=== PATIENT | female | born 1955 | race Caucasian/White ===

== ENCOUNTER 2020-10-17 16:53 | Inpatient (IN) ==
[2020-10-17] MEDS ORDERED: 0.9 % SODIUM CHLORIDE 500 ML IV ONE (17:20)
--- NOTE | 2020-10-17 17:30 | Emergency Department Note ---
HPI General Chief complaint: Recheck/Abnormal Lab/Rx Stated complaint: Hyponatremia Time Seen by Provider: 10/17/20 16:59 Source: patient and EMS Mode of arrival: EMS Limitations: no limitations History of Present Illness HPI Narrative: Narrative:Patient presenting from her nursing facility for evaluation of hyponatremia, she has had this issue with the past, unclear etiology but tends to resolve with IV hydration upon chart review. Patient has no acute complaints she reports this was a routine lab draw with the incidental finding, unclear how low her sodium is as I do not have a copy of her outpatient labs. She denies any complaints including acute weakness, acute focal neurologic deficit, paresthesias, vision changes, chest pain, shortness of breath, abdominal pain, nausea, vomiting, diarrhea. Patient states she does not take any home medications and has not had any recent changes or initiation of m edications, she says she has not really had any dietary changes or p.o. fluid changes that would indicate an obvious cause for this. Related Data Home Medications Medication Instructions Recorded Confirmed fluoxetine 10 mg PO QDAY 09/26/20 10/17/20 acetaminophen 1,000 mg PO TID PRN 10/17/20 10/17/20 Allergies Allergy/AdvReac Type Severity Reaction Status Date / Time bee venom protein (honey bee) Allergy Severe Anaphylaxis Verified 09/27/20 13:42 lactose AdvReac Intermediate Diarrhea Verified 09/27/20 13:42 Review of Systems ROS ROS Narrative: Narrative:At least 10 systems reviewed and otherwise acutely negative except as in the HPI PFSH Narrative Patient History Narrative: Narrative: Medical/Surgical/Family History All Active Problems (Updated 10/17/20 @ 19:15 by Ramón Kent DO) Abdominal pain (Acute) Anemia (Acute) Elevated alkaline phosphatase level (Acute) UTI (urinary tract infection) (Acute) Fall (Acute) Low back pain (Acute) Compression fracture (Acute) Acute UTI (Acute) Acute hyponatremia (Acute) Weakness (Acute) Acute hyponatremia (Acute) Acute hyponatremia (Acute) Poor vision (Chronic) Elevated liver enzymes (Acute) H/O brain surgery (Chronic) Pituitary benign neoplasm (Chronic) Medical History (Updated 10/17/20 @ 19:15 by Ramón Kent DO) Abdominal pain Bradycardia Elevated liver enzymes Pancreatitis, acute Pituitary benign neoplasm Poor vision Surgical History H/O brain surgery Social History Smoking Status: Former smoker Alcohol Intake Frequency: does not drink Substance Use: does not use Exam Narrative Narrative: Narrative:Constitutional: normally developed, no acute distress . Head: Normocephalic, atraumatic, Eyes: No Icterus, ENT: Slightly dry mucus membranes, Neck: Supple, Cardiac: Normal heart sounds, palpable radial pulses, no peripheral edema Pulmonary: Normal respiratory effort. Breath sounds clear, no wheeze, rhonchi, rales, Gastrointestinal: Abdomen soft, non-distended, non-tender, Musculoskeletal: No gross deformities, well perfused Skin: warm, dry Neuro: Alert and oriented. Moving all 4 extremities with symmetric strength, symmetric sensation General Limitations: no limitations Course Vital Signs Vital signs: Vital Signs Temperature 36.7 C 10/17/20 16:53 Pulse Rate 66 10/17/20 16:53 Respiratory Rate 18 10/17/20 16:53 Blood Pressure 98/54 10/17/20 16:53 Pulse Oximetry (%) 96 10/17/20 16:53 Temperature 36.7 C 10/17/20 16:53 Pulse Rate 65 10/17/20 19:01 Respiratory Rate 12 10/17/20 19:01 Blood Pressure 104/66 10/17/20 19:01 Pulse Oximetry (%) 95 10/17/20 19:01 [facility] MDM Narrative Medical decision making narrative: Narrative: Patient presents for evaluation of hyponatremia noted on outpatient labs, she has had this issue in the past which appears to resolve with some IV hydration, she has no acute complaints and no focal neurologic symptoms. Says she does not take any medications and has had no other significant changes to her routine that would elicit an obvious cause to her hyponatremia. Blood pressure is low normal although this does appear to be close to her baseline, will obtain basic labs and check her sodium in the meantime did give her a slow 500 cc NS bolus Lab results CBC is unremarkable, electrolytes do show a quite significant hyponatremia hypochloremia 115, 80. Again she is quite asymptomatic, certainly no neurologic symptoms she is oriented no reported seizure activity vital stable I have spoken with Dr. Suarez who accepts pt to PCU. I will order repeat of her BMP at this time to following her slow 500 cc bolus. . Lab Data Result diagrams: 10/17/20 17:25 10/17/20 17:25 Labs: Lab Results 10/17/20 10/17/20 Range/Units 17:25 17:25 WBC 5.5 (4.5-11.0) K/mcL RBC 3.51 L (4.00-5.20) M/mcL Hgb 10.5 L (12.0-15.0) g/dL Hct 29.0 L (36.0-48.0) % MCV 82.6 (80.0-100.0) fL MCH 29.9 (26.0-34.0) pg MCHC 36.2 H (31.0-36.0) g/dL RDW 11.9 (11.5-14.5) % Plt Count 226 (140-440) K/mcL MPV 10.0 (7.4-10.4) fL Neut % (Auto) 37.9 L (38.0-78.0) % Lymph % (Auto) 47.8 (15.0-49.0) % [place] % (Auto) 6.8 (1.0-12.0) % Eos % (Auto) 6.6 (0.0-7.0) % Baso % (Auto) 0.9 (0.0-2.0) % Lymph # (Auto) 2.62 (1.50-4.80) K/mcL [place] # (Auto) 0.37 (0.10-0.90) K/mcL Eos # (Auto) 0.36 (0.00-0.70) K/mcL Baso # (Auto) 0.05 (0.00-0.20) K/mcL Absolute Neutrophils 2.08 (1.80-8.00) K/mcL Sodium 115 L* (133-145) mmol/L Potassium 3.4 (3.3-5.1) mmol/L Chloride 80 L (96-108) mmol/L Carbon Dioxide 25 (22-30) mmol/L Anion Gap 10.0 (8.0-16.0) BUN 8 (8-23) mg/dL Creatinine 0.6 (0.6-1.1) mg/dL GFR Calculation 94 Glucose 86 (70-105) mg/dL Calcium 8.9 (8.6-10.4) mg/dL CC TIME Critical Care Time Critical Care Time: Yes Total Critical Care Time: 25 Attestation: Critical Care Time Total CriticalCare time was 25 minutes, excluding separately reportable procedures. There was a high probability of clinically significant/life threatening deterioration in the patient's condition which required my urgent intervention. Discharge Plan Patient/Caregiver Discharge Instructions Pt seen by LOCAL SALES MANAGER/PA only: No Clinical Impression: Acute hyponatremia Patient Disposition: Xfer As Inpt ([facility]) Condition: Fair Follow up with: Chai Vázquez ARNP [Primary Care Provider] - Prescriptions: No Action fluoxetine 10 mg Capsule 10 mg PO QDAY RF: 0 acetaminophen 500 mg Tablet 1,000 mg PO TID PRN (Reason: Pain) RF: 0
[2020-10-17 18:21] LABS: Basophils # (Auto) 0.05 K/mcL (0.00-0.20); Basophils % (Auto) 0.9 % (0.0-2.0); Eosinophils # (Auto) 0.36 K/mcL (0.00-0.70); Eosinophils % (Auto) 6.6 % (0.0-7.0); Hemoglobin 10.5 g/dL (12.0-15.0); Lymphocytes # (Auto) 2.62 K/mcL (1.50-4.80); Lymphocytes % (Auto) 47.8 % (15.0-49.0); Mean Cell Volume 82.6 fL (80.0-100.0); Mean Corpuscular HGB Conc 36.2 g/dL (31.0-36.0); Monocytes # (Auto) 0.37 K/mcL (0.10-0.90); Monocytes % (Auto) 6.8 % (1.0-12.0); Neutrophils % (Auto) 37.9 % (38.0-78.0); Platelet Count 226 K/mcL (140-440); RBC 3.51 M/mcL (4.00-5.20); Red Cell Distribution Width 11.9 % (11.5-14.5); WBC 5.5 K/mcL (4.5-11.0)
[2020-10-17 18:49] LABS: Blood Urea Nitrogen 8 mg/dL (8-23); Calcium 8.9 mg/dL (8.6-10.4); Carbon Dioxide 25 mmol/L (22-30); Chloride 80 mmol/L (96-108); Glomerular Filtration Rate 94; Glucose 86 mg/dL (70-105)
[2020-10-17 19:35] LABS: POC Blood Urea Nitrogen 8 mg/dL (6-20); POC CO2 27 mmol/L (22-30); POC Calcium, Ionized 1.17 mmEq/L (1.16-1.32); POC Chloride 79 mEq/L (96-108); POC Creatinine 0.5 mg/dL (0.6-1.2); POC Glucose, Random 85 mg/dL (70-105); POC Hematocrit 30 % (36-48); POC Potassium 3.3 mEql/L (3.3-5.1); POC Sodium 116 mEq/L (133-145)
--- NOTE | 2020-10-17 19:57 | Internal Med History&Physical ---
HPI History of Present Illness Patient information: Note initiated : 10/17/20 at 7:49 pm Service Date, if different from initiated Date: [] Patient: Yesica Fuller a 65 y/o F admitted on for Hyponatremia. Chief Complaint: [] History of present illness: Ms. Fuller is a 65 year old female who presented to the ED for hyponatremia discovered with the patient had routine labs drawn at the custodial [facility] where she is staying long-term. Patient has a history of cholecystectomy, osteoarthritis, prior hyponatremia noted on more recent lab work. She is on low-dose duloxetine, presumably for depression and takes Tylenol osteoarthritis of her knees. The patient says that she drinks a lot of water. In the ED, the patient was asymptomatic however sodium level was 115. Review of recent records indicate that she was seen last month in the ED and also had hyponatremia, improved to 131 after receiving IV fluid. On exam, the patient appears to be euvolemic. Review of systems was essentially negative except for chronic knee pain. Review of systems Constitutional: no fever, fatigue, or weight loss Eyes: no vision changes or pain Cardiovascular: no chest pain, no palpitations Respiratory: no cough or dyspnea Gastrointestinal: no abdominal pain, no nausea, vomiting, or diarrhea Genitourinary: no dysuria or difficulty voiding Musculoskeletal: Positive for chronic bilateral knee pain Integumentary: no skin lesion or wound Neurological: no focal weakness or numbness Psychiatric: no anxiety or depression Physical exam Head: Atraumatic, normal inspection. Eyes: normal appearance, no scleral icterus. Neck: full ROM Respiratory: no respiratory distress. Cardiovascular: normal rate and rhythm, S1, S2. GI/Abdominal: soft, nontender, no guarding. Extremities: full range of motion, nontender. Neurological: CN II-XII intact, intact motor, intact sensation. Psychiatric: normal mood. Skin: warm, normal color PFSH PFSH All Active Problems (Updated 10/17/20 @ 19:15 by Ramón Kent DO) Abdominal pain (Acute) Anemia (Acute) Elevated alkaline phosphatase level (Acute) UTI (urinary tract infection) (Acute) Fall (Acute) Low back pain (Acute) Compression fracture (Acute) Acute UTI (Acute) Acute hyponatremia (Acute) Weakness (Acute) Acute hyponatremia (Acute) Acute hyponatremia (Acute) Poor vision (Chronic) Elevated liver enzymes (Acute) H/O brain surgery (Chronic) Pituitary benign neoplasm (Chronic) Medical History (Updated 10/17/20 @ 19:15 by Ramón Kent DO) Abdominal pain Bradycardia Elevated liver enzymes Pancreatitis, acute Pituitary benign neoplasm Poor vision Surgical History H/O brain surgery Social History (Updated 04/11/19 @ 08:37 by Roro Sheppard DO) alcohol intake frequency: does not drink substance use type: does not use MEDS/ALLERGIES Home Medications and Allergies Home Medications Medication Instructions Recorded Confirmed Type fluoxetine 10 mg PO QDAY 09/26/20 10/17/20 History acetaminophen 1,000 mg PO TID PRN 10/17/20 10/17/20 History Allergies Allergy/AdvReac Type Severity Reaction Status Date / Time bee venom protein (honey bee) Allergy Severe Anaphylaxis Verified 09/27/20 13:42 lactose AdvReac Intermediate Diarrhea Verified 09/27/20 13:42 EXAM Constitutional Vitals: Temp Pulse Resp BP Pulse Ox 98.1 F 67 20 103/69 97 10/17/20 16:53 10/17/20 19:31 10/17/20 19:31 10/17/20 19:31 10/17/20 19:31 DATA Data Completed and Pending Labs: Labs from last 24 hours 10/17/20 10/17/20 10/17/20 19:23 17:25 17:25 WBC 5.5 RBC 3.51 L Hgb 10.5 L Hct 29.0 L POC Hct 30 L MCV 82.6 MCH 29.9 MCHC 36.2 H RDW 11.9 Plt Count 226 MPV 10.0 Neut % (Auto) 37.9 L Lymph % (Auto) 47.8 [place] % (Auto) 6.8 Eos % (Auto) 6.6 Baso % (Auto) 0.9 Lymph # (Auto) 2.62 [place] # (Auto) 0.37 Eos # (Auto) 0.36 Baso # (Auto) 0.05 Absolute Neutrophils 2.08 POC Sodium 116 L* Sodium 115 L* POC Potassium 3.3 Potassium 3.4 POC Chloride 79 L Chloride 80 L Carbon Dioxide 25 POC Total CO2 27 Anion Gap 10.0 POC BUN 8 BUN 8 Creatinine 0.6 POC Creatinine 0.5 L GFR Calculation 94 Glucose 86 POC Glucose 85 Calcium 8.9 POC WB Ioniz Calcium 1.17 A/P Narrative A/P Narrative: Assessment: 65-year-old female with no significant past medical history except possibly depression, osteoarthritis currently living in a custodial facility long-term admitted for severe hyponatremia. The patient is euvolemic on exam, the patient has had hyponatremia on more recent lab work. Hyponatremia may be related to polydipsia. #Severe euvolemic hyponatremia, asymptomatic #Chronic normocytic anemia #Osteoarthritis #Possible depression #Generalized weakness Plan -Slow IV fluid with NS, follow sodium closely, avoid correction greater than 8 mEq per 24-hour. -Serum osmolality. -Urine sodium and osmolality -TSH -Cortisol in a.m. -Lipid panel --Medication reconciliation -Tylenol prn for knee pain -Fluid restriction -PT -CODE STATUS: Full -Disposition: SNF when sodium near normal. Time Spent With Patient Time: Total time spent is greater than 50% in coordination of care (as documented) at patient's floor/unit and/or counseling patient:
[2020-10-17] MEDS ORDERED: 0.9 % SODIUM CHLORIDE 1,000 ML IV SCH (20:30)
[2020-10-17] MEDS ORDERED: SENNOSIDES 1 TABLET PO PRN (20:30)
[2020-10-17] MEDS ORDERED: ONDANSETRON 4 MG/2 ML VIAL IV PRN (20:30)
[2020-10-17] MEDS ORDERED: LACTULOSE 20 GM/30 ML ORAL.SOL PO PRN (20:30)
[2020-10-17] MEDS: DOCUSATE SODIUM 100 MG CAPSULE PO SCH (21:34)
[2020-10-17] MEDS: 0.9 % SODIUM CHLORIDE 10 ML SYRINGE IV SCH (22:07)
[2020-10-17 22:15] LABS: Blood Urea Nitrogen 8 mg/dL (8-23); Calcium 8.5 mg/dL (8.6-10.4); Carbon Dioxide 25 mmol/L (22-30); Chloride 83 mmol/L (96-108); Glomerular Filtration Rate 100; Glucose 79 mg/dL (70-105)
[2020-10-18 01:57] LABS: Blood Urea Nitrogen 6 mg/dL (8-23); Calcium 8.4 mg/dL (8.6-10.4); Carbon Dioxide 24 mmol/L (22-30); Chloride 81 mmol/L (96-108); Glomerular Filtration Rate 100; Glucose 88 mg/dL (70-105)
[2020-10-18] MEDS: 0.9 % SODIUM CHLORIDE 10 ML SYRINGE IV SCH ×3 (05:20→20:45)
[2020-10-18 07:43] LABS: HDL Cholesterol 50 mg/dL (>40); LDL Cholesterol,Calculated 63 mg/dL (<100); Non-HDL Cholesterol 75 mg/dL (<130); Thyroid Stimulating Hormone 2.58 uIU/mL (0.27-5.01); Triglycerides 63 mg/dL (<150)
[2020-10-18 07:57] LABS: ALT/SGPT 9 U/L (<40); AST/SGOT 29 U/L (<32); Albumin 3.4 gm/dL (3.2-5.2); Albumin/Globulin Ratio 1.5 (1.0-2.3); Alkaline Phosphatase 81 U/L (39-117); Bilirubin,Total 0.6 mg/dL (0.1-1.0); Globulin 2.3 gm/dL (2.2-3.7)
[2020-10-18] MEDS ORDERED: MAGNESIUM SULFATE 2 GM/50 ML BAG IV ONE (08:02)
[2020-10-18 08:10] LABS: Blood Urea Nitrogen 6 mg/dL (8-23); Calcium 8.5 mg/dL (8.6-10.4); Carbon Dioxide 25 mmol/L (22-30); Chloride 81 mmol/L (96-108); Glomerular Filtration Rate 108; Glucose 80 mg/dL (70-105)
[2020-10-18] MEDS ORDERED: SODIUM CHLORIDE 3 % 500 ML IV SCH (08:45)
[2020-10-18] MEDS ORDERED: POTASSIUM CHLORIDE 20 MEQ TABLET PO ONE (09:16)
[2020-10-18] MEDS: DOCUSATE SODIUM 100 MG CAPSULE PO SCH ×2 (12:01→20:45)
[2020-10-18] MEDS: ACETAMINOPHEN 160 MG/5 ML ORAL.SOL PO PRN (12:32)
--- NOTE | 2020-10-18 12:44 | Internal Med Progress Note ---
SUBJECTIVE Subjective Patient information: Note initiated : 10/18/20 at 12:43 pm Service Date, if different from initiated Date: [] Patient: Yesica Fuller a 65 y/o F admitted on 10/17/20 for Hyponatremia. Chief Complaint: [] Interval history: Ms. Fuller is a 65 year old female who presented to the ED for hyponatremia discovered with the patient had routine labs drawn at the nursing home [facility] where she is staying long-term. Patient has a history of cholecystectomy, osteoarthritis, prior hyponatremia noted on more recent lab work. She is on low-dose duloxetine, presumably for depression and takes Tylenol osteoarthritis of her knees. The patient says that she drinks a lot of water. In the ED, the patient was asymptomatic however sodium level was 115. Review of recent records indicate that she was seen last month in the ED and al so had hyponatremia, improved to 131 after receiving IV fluid. On exam, the patient appears to be euvolemic. Review of systems was essentially negative except for chronic knee pain. 10/18 Sodium still severely low after IV NS, asymptomatic. Gave 3% saline IV, following sodium level, fluid restriction. TSH normal, AM cortisol pending, urine Na and osmolality pending. Physical exam Head: Atraumatic, normal inspection. Eyes: normal appearance, no scleral icterus. Neck: full ROM Respiratory: no respiratory distress. Cardiovascular: normal rate and rhythm, S1, S2. GI/Abdominal: soft, nontender, no guarding. Extremities: full range of motion, nontender. Neurological: CN II-XII intact, intact motor, intact sensation. Psychiatric: normal mood. Skin: warm, normal color Constitutional Vitals: Vital Signs Temp Pulse Resp BP Pulse Ox 97.3 F 61 16 115/61 97 10/18/20 12:02 10/18/20 09:01 10/18/20 12:02 10/18/20 12:02 10/18/20 12:02 Period Temp Pulse Resp BP Sys/Hayes Pulse Ox Last 24 Hr 97.3 F-98.1 F 61-73 11-24 91-123/54-102 94-100 Intake and Output 10/17/20 10/18/20 10/18/20 21:59 05:59 13:59 Intake Total 500 200 123 Output Total 150 1 Balance 350 199 123 Weight 64.592 kg Intake & Output: Intake & Output 10/17/20 10/18/20 10/18/20 21:59 05:59 13:59 Intake Total 500 200 123 Output Total 150 1 Balance 350 199 123 Weight 64.592 kg Intake: IV 500 3 Sodium Chloride 0.9% 500 ml @ 500 500 mls/hr IV BOLUS ONE Rx#: [id number] Oral 200 120 Output: Void Amount 150 # of times incontinent of urine 1 Other: Meal Breakfast Percent of Meal Consumed 25% Feeding Ability Independent Urine Appearance Clear Urine Color Pale OBJ DATA Labs CBC & Chem 7: 10/17/20 17:25 10/18/20 05:06 Labs: Abnormal Lab Results 10/18/20 10/18/20 10/17/20 05:06 00:55 19:30 RBC Hgb Hct POC Hct MCHC Neut % (Auto) POC Sodium Sodium 114 L* 114 L* 115 L* Potassium 3.2 L POC Chloride Chloride 81 L 81 L 83 L Anion Gap 7.0 L BUN 6 L 6 L Creatinine 0.4 L 0.5 L 0.5 L POC Creatinine Osmolality 237 L Calcium 8.5 L 8.4 L 8.5 L Magnesium 1.5 L Total Protein 5.7 L 10/17/20 10/17/20 10/17/20 19:23 17:25 17:25 RBC 3.51 L Hgb 10.5 L Hct 29.0 L POC Hct 30 L MCHC 36.2 H Neut % (Auto) 37.9 L POC Sodium 116 L* Sodium 115 L* Potassium POC Chloride 79 L Chloride 80 L Anion Gap BUN Creatinine POC Creatinine 0.5 L Osmolality Calcium Magnesium Total Protein Meds: Medications Acetaminophen (Acetaminophen 160 Mg/5 Ml Oral.Meghan) 650 mg PO Q6HP PRN; Protocol PRN Reason: Per Pain Protocol Last Admin: 10/18/20 12:32 Dose: 650 mg Documented by: Docusate Sodium (Docusate Sodium 100 Mg Capsule) 100 mg PO BID [facility] Last Admin: 10/18/20 12:01 Dose: Not Given Documented by: Lactulose (Lactulose 20 Gm/30 Ml Oral.Meghan) 10 gm PO DAILYP PRN PRN Reason: Constipation Ondansetron HCl (Ondansetron 4 Mg/2 Ml Vial) 4 mg IV Q4HP PRN; Protocol PRN Reason: Nausea And Vomiting Last Admin: 10/18/20 02:54 Dose: 4 mg Documented by: Senna (Sennosides 1 Tablet) 2 tab PO HSP PRN PRN Reason: Constipation Sodium Chloride (0.9 % Sodium Chloride 10 Ml Syringe) 10 ml IV Q8 MELE Last Admin: 10/18/20 05:20 Dose: Not Given Documented by: A/P Narrative A/P Narrative: Assessment: 65-year-old female with no significant past medical history except possibly depression, osteoarthritis currently living in a nursing home facility long-term admitted for severe hyponatremia. The patient is euvolemic on exam, the patient has had hyponatremia on more recent lab work. Hyponatremia may be related to polydipsia vs SIADH. #Severe euvolemic hyponatremia, asymptomatic #Chronic normocytic anemia #Osteoarthritis #Possible depression #Generalized weakness Plan -3% NS follow sodium closely, avoid correction greater than 8 mEq per 24-hour. -Urine sodium and osmolality -Cortisol in a.m. -Hold home Fluoxetine. -Tylenol prn for knee pain -Fluid restriction -PT -CODE STATUS: Full -Disposition: SNF when sodium near normal. Time Spent With Patient Time: Total time spent is greater than 50% in coordination of care (as documented) at patient's floor/unit and/or counseling patient: QUALITY VTE Deep Vein Thrombosis/Pulmonary Embolism Present on Admission: No
[2020-10-18 12:58] LABS: Blood Urea Nitrogen 5 mg/dL (8-23); Calcium 8.6 mg/dL (8.6-10.4); Carbon Dioxide 24 mmol/L (22-30); Chloride 81 mmol/L (96-108); Glomerular Filtration Rate 108; Glucose 83 mg/dL (70-105)
[2020-10-18 18:59] LABS: Blood Urea Nitrogen 5 mg/dL (8-23); Calcium 8.7 mg/dL (8.6-10.4); Carbon Dioxide 24 mmol/L (22-30); Chloride 81 mmol/L (96-108); Glomerular Filtration Rate 108; Glucose 81 mg/dL (70-105)
[2020-10-18] MEDS ORDERED: 0.9 % SODIUM CHLORIDE 1,000 ML IV SCH (19:15)
[2020-10-18 19:38] LABS: Blood Urea Nitrogen 5 mg/dL (8-23); Calcium 8.8 mg/dL (8.6-10.4); Carbon Dioxide 26 mmol/L (22-30); Chloride 82 mmol/L (96-108); Glomerular Filtration Rate 100; Glucose 85 mg/dL (70-105)
[2020-10-19 00:21] LABS: POC Blood Urea Nitrogen 3 mg/dL (6-20); POC CO2 25 mmol/L (22-30); POC Calcium, Ionized 1.08 mmEq/L (1.16-1.32); POC Chloride 86 mEq/L (96-108); POC Creatinine 0.4 mg/dL (0.6-1.2); POC Glucose, Random 78 mg/dL (70-105); POC Hematocrit 29 % (36-48); POC Potassium 3.8 mEql/L (3.3-5.1); POC Sodium 120 mEq/L (133-145)
[2020-10-19] MEDS ORDERED: 0.9 % SODIUM CHLORIDE 1,000 ML IV SCH ×2 (00:36→17:56)
[2020-10-19 04:23] LABS: POC Blood Urea Nitrogen < 3 mg/dL; POC CO2 28 mmol/L (22-30); POC Calcium, Ionized 1.15 mmEq/L (1.16-1.32); POC Chloride 86 mEq/L (96-108); POC Creatinine 0.4 mg/dL (0.6-1.2); POC Glucose, Random 75 mg/dL (70-105); POC Hematocrit 32 % (36-48); POC Sodium 121 mEq/L (133-145)
[2020-10-19] MEDS: 0.9 % SODIUM CHLORIDE 10 ML SYRINGE IV SCH ×3 (05:42→20:56)
[2020-10-19 06:22] LABS: Blood Urea Nitrogen 3 mg/dL (8-23); Calcium 8.7 mg/dL (8.6-10.4); Carbon Dioxide 24 mmol/L (22-30); Chloride 86 mmol/L (96-108); Glomerular Filtration Rate 100; Glucose 73 mg/dL (70-105)
[2020-10-19] MEDS ORDERED: 0.9 % SODIUM CHLORIDE 500 ML IV ONE (06:33)
[2020-10-19] MEDS: 0.9 % SODIUM CHLORIDE 1,000 ML IV SCH ×2 (07:13→18:39)
[2020-10-19] MEDS ORDERED: COSYNTROPIN 0.25 MG VIAL IV ONE (08:00)
[2020-10-19] MEDS: DOCUSATE SODIUM 100 MG CAPSULE PO SCH ×2 (09:06→20:56)
[2020-10-19] MEDS ORDERED: HYDROCORTISONE SOD SUCC 100 MG VIAL IV ONE (10:02)
--- NOTE | 2020-10-19 11:31 | Internal Med Progress Note ---
SUBJECTIVE Subjective Patient information: Note initiated : 10/19/20 at 11:26 am Service Date, if different from initiated Date: [] Patient: Yesica Fuller a 65 y/o F admitted on 10/17/20 for Hyponatremia. Chief Complaint: [] Interval history: Ms. Fuller is a 65 year old female who presented to the ED for hyponatremia discovered with the patient had routine labs drawn at the longterm [facility] where she is staying long-term. Patient has a history of cholecystectomy, osteoarthritis, prior hyponatremia noted on more recent lab work. She is on low-dose duloxetine, presumably for depression and takes Tylenol osteoarthritis of her knees. The patient says that she drinks a lot of water. In the ED, the patient was asymptomatic however sodium level was 115. Review of recent records indicate that she was seen last month in the ED and al so had hyponatremia, improved to 131 after receiving IV fluid. On exam, the patient appears to be euvolemic. Review of systems was essentially negative except for chronic knee pain. 10/18 Sodium still severely low after IV NS, asymptomatic. Gave 3% saline IV, following sodium level, fluid restriction. TSH normal, AM cortisol pending, urine Na and osmolality pending. 10/19 Low normal AM cortisol, high dose cosyntropin test suggestive of adrenal insufficiency. Started stress dose Hydrocortisone IV. IV fluid with normal saline, trending sodium. ACTH level pending. Physical exam Head: Atraumatic, normal inspection. Eyes: normal appearance, no scleral icterus. Neck: full ROM Respiratory: no respiratory distress. Cardiovascular: normal rate and rhythm, S1, S2. GI/Abdominal: soft, nontender, no guarding. Extremities: full range of motion, nontender. Neurological: II-XII intact, intact motor, intact sensation. Psychiatric: normal mood. Skin: warm, normal color Constitutional Vitals: Vital Signs Temp Pulse Resp BP Pulse Ox 97.5 F 68 12 93/54 96 10/19/20 08:01 10/19/20 05:11 10/19/20 08:01 10/19/20 08:01 10/19/20 08:01 Period Temp Pulse Resp BP Sys/Hayes Pulse Ox Last 24 Hr 97.3 F-97.8 F 62-71 11- 77-128/51-71 91-100 Intake and Output 10/18/20 10/19/20 10/19/20 21:59 05:59 13:59 Intake Total 1139 682 807 Output Total 101 327 0 Balance 1038 355 807 Weight 64.592 kg Intake & Output: Intake & Output 10/18/20 10/19/20 10/19/20 21:59 05:59 13:59 Intake Total 1139 682 807 Output Total 101 327 0 Balance 1038 355 807 Weight 64.592 kg Intake: IV 839 482 807 Sodium Chloride 0.9% 1,000 ml @ 500 482 307 50 mls/hr IV .Q20H [facility] Rx#: [id number] Sodium Chloride 0.9% 500 ml @ 500 Wide Open IV BOLUS ONE Rx#: [id number] Sodium Chloride 3% 500 ml @ 30 292 mls/hr IV ONCE [facility] Rx#: [id number] Oral 300 200 0 Output: Void Amount 100 325 0 # of times incontinent of urine 1 2 Other: Meal Dinner Percent of Meal Consumed 25% Urine Appearance Clear Clear Urine Color Bright Yellow Straw # Bowel Movements 0 OBJ DATA Labs CBC & Chem 7: 10/17/20 17:25 10/19/20 04:11 Labs: Abnormal Lab Results 10/19/20 10/19/20 10/18/20 04:11 00:10 18:11 RBC Hgb Hct POC Hct 32 L 29 L MCHC Neut % (Auto) POC Sodium 121 L 120 L Sodium 117 L* 115 L* Potassium POC Chloride 86 L 86 L Chloride 86 L 82 L Anion Gap 7.0 L 7.0 L POC BUN < 3 L 3 L BUN 3 L 5 L Creatinine 0.5 L 0.5 L POC Creatinine 0.4 L 0.4 L Osmolality Calcium POC WB Ioniz Calcium 1.15 L 1.08 L Magnesium Total Protein 10/18/20 10/18/20 10/18/20 12:24 08:39 05:06 RBC Hgb Hct POC Hct MCHC Neut % (Auto) POC Sodium Sodium 115 L* 113 L* 114 L* Potassium 3.2 L POC Chloride Chloride 81 L 81 L 81 L Anion Gap POC BUN BUN 5 L 5 L 6 L Creatinine 0.4 L 0.4 L 0.4 L POC Creatinine Osmolality Calcium 8.5 L POC WB Ioniz Calcium Magnesium 1.5 L Total Protein 5.7 L 10/18/20 10/17/20 10/17/20 00:55 19:30 19:23 RBC Hgb Hct POC Hct 30 L MCHC Neut % (Auto) POC Sodium 116 L* Sodium 114 L* 115 L* Potassium POC Chloride 79 L Chloride 81 L 83 L Anion Gap 7.0 L POC BUN BUN 6 L Creatinine 0.5 L 0.5 L POC Creatinine 0.5 L Osmolality 237 L Calcium 8.4 L 8.5 L POC WB Ioniz Calcium Magnesium Total Protein 10/17/20 10/17/20 17:25 17:25 RBC 3.51 L Hgb 10.5 L Hct 29.0 L POC Hct MCHC 36.2 H Neut % (Auto) 37.9 L POC Sodium Sodium 115 L* Potassium POC Chloride Chloride 80 L Anion Gap POC BUN BUN Creatinine POC Creatinine Osmolality Calcium POC WB Ioniz Calcium Magnesium Total Protein Meds: Medications Acetaminophen (Acetaminophen 160 Mg/5 Ml Oral.Meghan) 650 mg PO Q6HP PRN; Protocol PRN Reason: Per Pain Protocol Last Admin: 10/18/20 12:32 Dose: 650 mg Documented by: Docusate Sodium (Docusate Sodium 100 Mg Capsule) 100 mg PO BID [facility] Last Admin: 10/19/20 09:06 Dose: Not Given Documented by: Hydrocortisone Sodium Succinate (Hydrocortisone Sod Succ 100 Mg Vial) 50 mg IV Q6 [facility] Stop: 10/20/20 06:01 Sodium Chloride (Sodium Chloride 0.9%) 1,000 mls @ 100 mls/hr IV .Q10H [facility] Last Admin: 10/19/20 07:13 Dose: 100 mls/hr Documented by: Lactulose (Lactulose 20 Gm/30 Ml Oral.Meghan) 10 gm PO DAILYP PRN PRN Reason: Constipation Ondansetron HCl (Ondansetron 4 Mg/2 Ml Vial) 4 mg IV Q4HP PRN; Protocol PRN Reason: Nausea And Vomiting Last Admin: 10/18/20 02:54 Dose: 4 mg Documented by: Senna (Sennosides 1 Tablet) 2 tab PO HSP PRN PRN Reason: Constipation Sodium Chloride (0.9 % Sodium Chloride 10 Ml Syringe) 10 ml IV Q8 [facility] Last Admin: 10/19/20 05:42 Dose: 10 ml Documented by: A/P Narrative A/P Narrative: Assessment: 65-year-old female with no significant past medical history except possibly depression, osteoarthritis currently living in a longterm facility long-term admitted for severe hyponatremia. The patient is euvolemic on exam, the patient has had hyponatremia on more recent lab work. Hyponatremia workup was suggestive of adrenal insufficiency. #Severe euvolemic hyponatremia, asymptomatic #Probable adrenal insufficiency -low normal AM cortisol (8:00 AM) -high dose cosyntropin stimulation 250 mcg w/ cortisol levels of 9.4 at 30 min and 11.6 at 60 min #Chronic normocytic anemia #Osteoarthritis #Possible depression vs adrenal insufficiency? #Generalized weakness possibly due to adrenal insufficiency Plan -Start stress dose Hydrocortisone IV, monitor for responce. -Trend sodium level, avoid overcorrection. -Hold home Fluoxetine. -Tylenol prn for knee pain -Fluid restriction -PT/OT -CODE STATUS: Full -Disposition: SNF when sodium near normal. Time Spent With Patient Time: Total time spent is greater than 50% in coordination of care (as documented) at patient's floor/unit and/or counseling patient: QUALITY VTE Deep Vein Thrombosis/Pulmonary Embolism Present on Admission: No
[2020-10-19 12:07] LABS: Blood Urea Nitrogen 4 mg/dL (8-23); Calcium 8.7 mg/dL (8.6-10.4); Carbon Dioxide 24 mmol/L (22-30); Chloride 86 mmol/L (96-108); Glomerular Filtration Rate 100; Glucose 81 mg/dL (70-105)
[2020-10-19] MEDS: HYDROCORTISONE SOD SUCC 100 MG VIAL IV SCH ×2 (17:31→18:09)
[2020-10-19 17:37] LABS: Blood Urea Nitrogen 4 mg/dL (8-23); Calcium 8.6 mg/dL (8.6-10.4); Carbon Dioxide 22 mmol/L (22-30); Chloride 89 mmol/L (96-108); Glomerular Filtration Rate 100; Glucose 107 mg/dL (70-105)
[2020-10-19 22:55] LABS: Blood Urea Nitrogen 5 mg/dL (8-23); Carbon Dioxide 27 mmol/L (22-30); Chloride 95 mmol/L (96-108); Glomerular Filtration Rate 94; Glucose 120 mg/dL (70-105)
[2020-10-19] MEDS ORDERED: DEXTROSE 5% IN WATER 1,000 ML IV SCH (23:30)
[2020-10-20] MEDS: HYDROCORTISONE SOD SUCC 100 MG VIAL IV SCH ×5 (00:10→17:41)
[2020-10-20 03:12] LABS: Blood Urea Nitrogen 5 mg/dL (8-23); Calcium 9.1 mg/dL (8.6-10.4); Carbon Dioxide 26 mmol/L (22-30); Chloride 94 mmol/L (96-108); Glomerular Filtration Rate 94; Glucose 140 mg/dL (70-105)
[2020-10-20] MEDS ORDERED: DEXTROSE 5% IN WATER 1,000 ML IV SCH ×2 (03:30→08:49)
[2020-10-20] MEDS: 0.9 % SODIUM CHLORIDE 10 ML SYRINGE IV SCH ×3 (05:45→22:50)
[2020-10-20 06:57] LABS: Blood Urea Nitrogen 5 mg/dL (8-23); Calcium 9.4 mg/dL (8.6-10.4); Carbon Dioxide 23 mmol/L (22-30); Chloride 93 mmol/L (96-108); Glomerular Filtration Rate 94; Glucose 151 mg/dL (70-105)
[2020-10-20 07:08] LABS: Free T4 (Free Thyroxine) 0.98 ng/dL (0.93-1.70)
[2020-10-20] MEDS ORDERED: HYDROCORTISONE SOD SUCC 100 MG VIAL IV SCH (07:15)
[2020-10-20 08:47] LABS: Blood Urea Nitrogen 5 mg/dL (8-23); Carbon Dioxide 25 mmol/L (22-30); Chloride 92 mmol/L (96-108); Glomerular Filtration Rate 94; Glucose 143 mg/dL (70-105)
[2020-10-20] MEDS: DOCUSATE SODIUM 100 MG CAPSULE PO SCH ×2 (10:58→21:19)
[2020-10-20 11:18] LABS: Blood Urea Nitrogen 5 mg/dL (8-23); Calcium 9.2 mg/dL (8.6-10.4); Carbon Dioxide 26 mmol/L (22-30); Chloride 91 mmol/L (96-108); Glomerular Filtration Rate 94; Glucose 139 mg/dL (70-105)
[2020-10-20] MEDS: 0.9 % SODIUM CHLORIDE 1,000 ML IV SCH (12:00)
--- NOTE | 2020-10-20 13:20 | Internal Med Progress Note ---
SUBJECTIVE Subjective Patient information: Note initiated : 10/20/20 at 1:14 pm Service Date, if different from initiated Date: [] Patient: Yesica Fuller a 65 y/o F admitted on 10/17/20 for Hyponatremia. Chief Complaint: [] Interval history: Ms. Fuller is a 65 year old female who presented to the ED for hyponatremia discovered with the patient had routine labs drawn at the [facility] staying [facility]term. Patient has a history of cholecystectomy, osteoarthritis, prior hyponatremia noted on more recent lab work. She is on low-dose duloxetine, presumably for depression and takes Tylenol osteoarthritis of her knees. The patient says that she drinks a lot of water. In the ED, the patient was asymptomatic however sodium level was 115. Review of recent records indicate that she was seen last month in the ED and als o had hyponatremia, improved to 131 after receiving IV fluid. On exam, the patient appears to be euvolemic. Review of systems was essentially negative except for chronic knee pain. 10/18 Sodium still severely low after IV NS, asymptomatic. Gave 3% saline IV, following sodium level, fluid restriction. TSH normal, AM cortisol pending, urine Na and osmolality pending. 10/19 Low normal AM cortisol, high dose cosyntropin test suggestive of adrenal insufficiency. Started stress dose Hydrocortisone IV. IV fluid with normal saline, trending sodium. ACTH level pending. 10/20 Started D5 IV overnight to slow sodium correction, discontinued this morning. The patient feels better today. Overall clinical picture suggestive of adrenal insufficiency causing her decline in health in the recent weeks. Continue Hydrocortisone IV today, will transition to oral therapy prior to discharge. Free T4 in the normal range. Still waiting on ACTH level but suspect secondary or less likely tertiary adrenal insufficiency. After further discussion and review the patient says she had pituitary surgery awhile ago but does not recall those details. Physical exam Head: Atraumatic, normal inspection. Eyes: normal appearance, no scleral icterus. Neck: full ROM Respiratory: no respiratory distress. Cardiovascular: normal rate and rhythm, S1, S2. GI/Abdominal: soft, nontender, no guarding. Extremities: full range of motion, nontender. Neurological: II-XII intact, intact motor, intact sensation. Psychiatric: normal mood. Skin: warm, normal color Constitutional Vitals: Vital Signs Temp Pulse Resp BP Pulse Ox 97.3 F 95 H 15 100/71 94 10/20/20 12:01 10/20/20 10:00 10/20/20 12:01 10/20/20 12:01 10/20/20 12:01 Period Temp Pulse Resp BP Sys/Hayes Pulse Ox Last 24 Hr 97.0 F-98.8 F 62-107 11-24 71-124/48-83 92-98 Intake and Output 10/19/20 10/20/20 10/20/20 21:59 05:59 13:59 Intake Total 1000 921 686 Output Total 252 351 2 Balance 748 570 684 Weight 66.088 kg Intake & Output: Intake & Output 10/19/20 10/20/20 10/20/20 21:59 05:59 13:59 Intake Total 1000 921 686 Output Total 252 351 2 Balance 748 570 684 Weight 66.088 kg Intake: IV 1000 681 686 Sodium Chloride 0.9% 1,000 ml @ 1000 268 50 mls/hr IV .Q20H [facility] Rx#: [id number] Dextrose 5% in Water 1,000 ml @ 413 686 100 mls/hr IV .Q10H [facility] Rx#: [id number] Oral 240 Output: Void Amount 250 350 # of times incontinent of urine 2 1 2 Other: Urine Appearance Clear Urine Color Bright Yellow Pale Urine Odor Normal # Voids 1 1 OBJ DATA Labs CBC & Chem 7: 10/17/20 17:25 10/20/20 10:04 Labs: Abnormal Lab Results 10/20/20 10/20/20 10/20/20 10:04 08:02 06:07 RBC Hgb Hct POC Hct MCHC Neut % (Auto) POC Sodium Sodium 126 L 126 L 126 L Potassium POC Chloride Chloride 91 L 92 L 93 L Anion Gap POC BUN BUN 5 L 5 L 5 L Creatinine POC Creatinine Glucose 139 H 143 H 151 H Osmolality Calcium POC WB Ioniz Calcium Magnesium Total Protein 10/20/20 10/19/20 10/19/20 02:09 22:05 16:55 RBC Hgb Hct POC Hct MCHC Neut % (Auto) POC Sodium Sodium 127 L 128 L 120 L Potassium POC Chloride Chloride 94 L 95 L 89 L Anion Gap 7.0 L 6.0 L POC BUN BUN 5 L 5 L 4 L Creatinine 0.5 L POC Creatinine Glucose 140 H 120 H 107 H Osmolality Calcium POC WB Ioniz Calcium Magnesium Total Protein 10/19/20 10/19/20 10/19/20 10:13 04:11 00:10 RBC Hgb Hct POC Hct 32 L 29 L MCHC Neut % (Auto) POC Sodium 121 L 120 L Sodium 117 L* 117 L* Potassium POC Chloride 86 L 86 L Chloride 86 L 86 L Anion Gap 7.0 L 7.0 L POC BUN < 3 L 3 L BUN 4 L 3 L Creatinine 0.5 L 0.5 L POC Creatinine 0.4 L 0.4 L Glucose Osmolality Calcium POC WB Ioniz Calcium 1.15 L 1.08 L Magnesium Total Protein 10/18/20 10/18/20 10/18/20 18:11 12:24 08:39 RBC Hgb Hct POC Hct MCHC Neut % (Auto) POC Sodium Sodium 115 L* 115 L* 113 L* Potassium POC Chloride Chloride 82 L 81 L 81 L Anion Gap 7.0 L POC BUN BUN 5 L 5 L 5 L Creatinine 0.5 L 0.4 L 0.4 L POC Creatinine Glucose Osmolality Calcium POC WB Ioniz Calcium Magnesium Total Protein 10/18/20 10/18/20 10/17/20 05:06 00:55 19:30 RBC Hgb Hct POC Hct MCHC Neut % (Auto) POC Sodium Sodium 114 L* 114 L* 115 L* Potassium 3.2 L POC Chloride Chloride 81 L 81 L 83 L Anion Gap 7.0 L POC BUN BUN 6 L 6 L Creatinine 0.4 L 0.5 L 0.5 L POC Creatinine Glucose Osmolality 237 L Calcium 8.5 L 8.4 L 8.5 L POC WB Ioniz Calcium Magnesium 1.5 L Total Protein 5.7 L 10/17/20 10/17/20 10/17/20 19:23 17:25 17:25 RBC 3.51 L Hgb 10.5 L Hct 29.0 L POC Hct 30 L MCHC 36.2 H Neut % (Auto) 37.9 L POC Sodium 116 L* Sodium 115 L* Potassium POC Chloride 79 L Chloride 80 L Anion Gap POC BUN BUN Creatinine POC Creatinine 0.5 L Glucose Osmolality Calcium POC WB Ioniz Calcium Magnesium Total Protein Meds: Medications Acetaminophen (Acetaminophen 160 Mg/5 Ml Oral.Meghan) 650 mg PO Q6HP PRN; Protocol PRN Reason: Per Pain Protocol Last Admin: 10/18/20 12:32 Dose: 650 mg Documented by: Docusate Sodium (Docusate Sodium 100 Mg Capsule) 100 mg PO BID [facility] Last Admin: 10/20/20 10:58 Dose: Not Given Documented by: Hydrocortisone Sodium Succinate (Hydrocortisone Sod Succ 100 Mg Vial) 50 mg IV Q6 [facility] Last Admin: 10/20/20 11:46 Dose: 50 mg Documented by: Sodium Chloride (Sodium Chloride 0.9%) 1,000 mls @ 75 mls/hr IV .[id number] [facility] Last Admin: 10/20/20 12:00 Dose: 75 mls/hr Documented by: Lactulose (Lactulose 20 Gm/30 Ml Oral.Meghan) 10 gm PO DAILYP PRN PRN Reason: Constipation Ondansetron HCl (Ondansetron 4 Mg/2 Ml Vial) 4 mg IV Q4HP PRN; Protocol PRN Reason: Nausea And Vomiting Last Admin: 10/18/20 02:54 Dose: 4 mg Documented by: Senna (Sennosides 1 Tablet) 2 tab PO HSP PRN PRN Reason: Constipation Sodium Chloride (0.9 % Sodium Chloride 10 Ml Syringe) 10 ml IV Q8 [facility] Last Admin: 10/20/20 05:45 Dose: 10 ml Documented by: A/P Narrative A/P Narrative: Assessment: 65-year-old female with no significant past medical history except possibly depression, osteoarthritis currently living in a senior care facility long-term admitted for severe hyponatremia. The patient is euvolemic on exam, the patient has had hyponatremia on more recent lab work. Hyponatremia workup was suggestive of adrenal insufficiency. #Severe euvolemic hyponatremia, asymptomatic #Adrenal insufficiency -low normal AM cortisol (8:00 AM) -high dose cosyntropin stimulation 250 mcg w/ cortisol levels of 9.4 at 30 min and 11.6 at 60 min #Chronic normocytic anemia #Osteoarthritis #Possible depression vs adrenal insufficiency? #Generalized weakness possibly due to adrenal insufficiency Plan -Continue Hydrocortisone 50 mcg IV Q6 hrs for now, will transition to oral therapy before discharge. -Trend sodium level, avoid overcorrection. -Pending ACTH. -Hold home Fluoxetine. -Tylenol prn for knee pain -Consider MRI of pituitary gland. -PT/OT -CODE STATUS: Full -Disposition: SNF when sodium near normal, referral for endocrinology. Time Spent With Patient Time: Total time spent is greater than 50% in coordination of care (as documented) at patient's floor/unit and/or counseling patient: QUALITY VTE Deep Vein Thrombosis/Pulmonary Embolism Present on Admission: No
[2020-10-20] MEDS: ACETAMINOPHEN 160 MG/5 ML ORAL.SOL PO PRN (16:05)
[2020-10-20 17:27] LABS: Blood Urea Nitrogen 6 mg/dL (8-23); Calcium 9.5 mg/dL (8.6-10.4); Carbon Dioxide 22 mmol/L (22-30); Chloride 96 mmol/L (96-108); Glomerular Filtration Rate 90; Glucose 119 mg/dL (70-105)
[2020-10-20 18:22] LABS: Sodium, Urine Random 10 mmol/L
[2020-10-20 18:39] LABS: Osmolality,Urine 79 mOSM/kg (80-1000)
[2020-10-21] MEDS: HYDROCORTISONE SOD SUCC 100 MG VIAL IV SCH ×2 (00:06→05:45)
[2020-10-21] MEDS: 0.9 % SODIUM CHLORIDE 1,000 ML IV SCH (01:20)
[2020-10-21] MEDS: 0.9 % SODIUM CHLORIDE 10 ML SYRINGE IV SCH ×3 (05:46→21:05)
[2020-10-21 05:53] LABS: Basophils # (Auto) 0.01 K/mcL (0.00-0.20); Basophils % (Auto) 0.1 % (0.0-2.0); Eosinophils # (Auto) 0 K/mcL (0.00-0.70); Eosinophils % (Auto) 0 % (0.0-7.0); Hematocrit 26.9 % (36.0-48.0); Hemoglobin 8.8 g/dL (12.0-15.0); Lymphocytes # (Auto) 1.58 K/mcL (1.50-4.80); Mean Cell Volume 89.7 fL (80.0-100.0); Mean Corpuscular HGB Conc 32.7 g/dL (31.0-36.0); Mean Platelet Volume 10.1 fL (7.4-10.4); Monocytes # (Auto) 0.23 K/mcL (0.10-0.90); Monocytes % (Auto) 3.2 % (1.0-12.0); Neutrophils % (Auto) 74.7 % (38.0-78.0); Platelet Count 197 K/mcL (140-440); Red Cell Distribution Width 12.9 % (11.5-14.5); WBC 7.2 K/mcL (4.5-11.0)
[2020-10-21 06:37] LABS: Blood Urea Nitrogen 7 mg/dL (8-23); Calcium 8.7 mg/dL (8.6-10.4); Carbon Dioxide 22 mmol/L (22-30); Chloride 98 mmol/L (96-108); Glomerular Filtration Rate 94; Glucose 121 mg/dL (70-105)
[2020-10-21] MEDS: DOCUSATE SODIUM 100 MG CAPSULE PO SCH ×2 (08:57→21:05)
[2020-10-21] MEDS ORDERED: SENNOSIDES 1 TABLET PO PRN (10:57)
[2020-10-21] MEDS ORDERED: LACTULOSE 20 GM/30 ML ORAL.SOL PO PRN (10:57)
[2020-10-21] MEDS ORDERED: ACETAMINOPHEN 160 MG/5 ML ORAL.SOL PO PRN (10:57)
[2020-10-21] MEDS ORDERED: ONDANSETRON 4 MG/2 ML VIAL IV PRN (10:57)
[2020-10-21] MEDS ORDERED: 0.9 % SODIUM CHLORIDE 1,000 ML IV SCH (10:57)
[2020-10-21] MEDS ORDERED: GADOBENATE DIMEGLUMINE 15 ML/VIAL IV ONE (11:19)
[2020-10-21] MEDS ORDERED: HYDROCORTISONE SOD SUCC 100 MG VIAL IV SCH ×2 (12:00→22:00)
--- NOTE | 2020-10-21 13:45 | Magnetic Resonance Report ---
CLINICAL INFORMATION: Hyponatremia and renal insufficiency. Possible prior pituitary surgery. COMPARISON: None. TECHNIQUE: Sagittal T1 FLAIR, axial diffusion ADC, T1 FLAIR, T2 FLAIR propeller, T2 propeller gradient, T1 post Magnevist and coronal T1 FLAIR post Magnevist images were acquired. FINDINGS: A massive (6.2 x 3.6 cm) classic appearing pituitary macroadenoma is identified. It has expanded and remodeled the sella turcica, extending through the diaphragmatic sella into the suprasellar region where it compresses the anterior third ventricle resulting in obstructive hydrocephalus. Lateral ventricles are moderately enlarged. The posterior/ mid third ventricle, cerebral aqueduct and fourth ventricle are normal size. A 3.5 cm lobulated cavity surrounds the right suprasellar portion of the macroadenoma likely represents a expanded Virchow space. The mass also invades both cavernous sinuses displacing, but not obstructing both cavernous carotid arteries. The mass is isointense to cerebral cortex on T1, increased signal on T2 and demonstrates inhomogeneous enhancement. Scattered chronic ischemic foci in the cerebral white matter is compatible senescent changes - expected for age. IMPRESSION: 6.2 x 3.6 cm classic appearing massive pituitary macroadenoma. The mass obstructs the anterior third ventricle resulting in obstructive hydrocephalus with asymmetric lateral ventricle dilatation. It is vague both cavernous sinuses and extrinsically displaces the cavernous segments of both internal carotid arteries. The mass is likely hormonally active, however, by virtue of replacing the pituitary gland, the ACTH secretion is diminished accounting for adrenal insufficiency. Please correlate with serologic panhypopituitarism to determine the absence of other pituitary hormones.. Interpreted and Authenticated by: Eligio Murdock 10/21/20
--- NOTE | 2020-10-21 19:55 | Internal Med Progress Note ---
SUBJECTIVE Subjective Patient information: Note initiated : 10/21/20 at 7:52 pm Service Date, if different from initiated Date: [] Patient: Yesica Fuller a 65 y/o F admitted on 10/17/20 for Hyponatremia. Chief Complaint: [] Interval history: Ms. Fuller is a 65 year old female who presented to the ED for hyponatremia discovered with the patient had routine labs drawn at the intermediate facility where she is staying [facility]term. Patient has a history of cholecystectomy, osteoarthritis, prior hyponatremia noted on more recent lab work. She is on low-dose duloxetine, presumably for depression and takes Tylenol osteoarthritis of her knees. The patient says that she drinks a lot of water. In the ED, the patient was asymptomatic however sodium level was 115. Review of recent records indicate that she was seen last month in the ED and als o had hyponatremia, improved to 131 after receiving IV fluid. On exam, the patient appears to be euvolemic. Review of systems was essentially negative except for chronic knee pain. 10/18 Sodium still severely low after IV NS, asymptomatic. Gave 3% saline IV, following sodium level, fluid restriction. TSH normal, AM cortisol pending, urine Na and osmolality pending. 10/19 Low normal AM cortisol, high dose cosyntropin test suggestive of adrenal insufficiency. Started stress dose Hydrocortisone IV. IV fluid with normal saline, trending sodium. ACTH level pending. 10/20 Started D5 IV overnight to slow sodium correction, discontinued this morning. The patient feels better today. Overall clinical picture suggestive of adrenal insufficiency causing her decline in health in the recent weeks. Continue Hydrocortisone IV today, will transition to oral therapy prior to discharge. Free T4 in the normal range. Still waiting on ACTH level but suspect secondary or less likely tertiary adrenal insufficiency. After further discussion and review the patient says she had pituitary surgery awhile ago but does not recall those details. 10/21 MRI pituitary protocol showed a large pituitary mass. Prolactin ordered with serial dilutions. 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 Sodium 131 today. The patient feels much better overall. Physical exam Head: Atraumatic, normal inspection. Eyes: normal appearance, no scleral icterus. Neck: full ROM Respiratory: no respiratory distress. Cardiovascular: normal rate and rhythm, S1, S2. GI/Abdominal: soft, nontender, no guarding. Extremities: full range of motion, nontender. Neurological: II-XII intact, intact motor, intact sensation. Psychiatric: normal mood. Skin: warm, normal color Constitutional Vitals: Vital Signs Temp Pulse Resp BP Pulse Ox 98.2 F 72 16 110/78 96 10/21/20 17:11 10/21/20 17:11 10/21/20 17:11 10/21/20 17:11 10/21/20 17:11 Period Temp Pulse Resp BP Sys/Hayes Pulse Ox Last 24 Hr 97.8 F-98.3 F 72-89 13-20 110-127/62-81 95-98 Intake and Output 10/21/20 10/21/20 10/21/20 05:59 13:59 21:59 Intake Total 1200 1400 Output Total 2 128 Balance 1198 -128 1400 Intake & Output: Intake & Output 10/21/20 10/21/20 10/21/20 05:59 13:59 21:59 Intake Total 1200 1400 Output Total 2 128 Balance 1198 -128 1400 Intake: IV 1000 1000 Sodium Chloride 0.9% 1,000 ml @ 1000 1000 75 mls/hr IV .[id number] [facility] Rx#: [id number] Oral 200 400 Output: Void Amount 125 # of times incontinent of urine 2 3 Other: Meal Lunch Percent of Meal Consumed 50% Urine Appearance Clear Urine Color Pale OBJ DATA Labs CBC & Chem 7: 10/21/20 12:05 10/21/20 05:10 Labs: Abnormal Lab Results 10/21/20 10/21/20 10/21/20 12:05 05:10 05:10 RBC 3.00 L Hgb 9.5 L 8.8 L Hct 26.9 L POC Hct POC Sodium Sodium 131 L POC Chloride Chloride Anion Gap POC BUN BUN 7 L Creatinine POC Creatinine Glucose 121 H POC WB Ioniz Calcium Urine Osmolality 10/20/20 10/20/20 10/20/20 16:10 15:51 10:04 RBC Hgb Hct POC Hct POC Sodium Sodium 129 L 126 L POC Chloride Chloride 91 L Anion Gap POC BUN BUN 6 L 5 L Creatinine POC Creatinine Glucose 119 H 139 H POC WB Ioniz Calcium Urine Osmolality 79 L 10/20/20 10/20/20 10/20/20 08:02 06:07 02:09 RBC Hgb Hct POC Hct POC Sodium Sodium 126 L 126 L 127 L POC Chloride Chloride 92 L 93 L 94 L Anion Gap 7.0 L POC BUN BUN 5 L 5 L 5 L Creatinine POC Creatinine Glucose 143 H 151 H 140 H POC WB Ioniz Calcium Urine Osmolality 10/19/20 10/19/20 10/19/20 22:05 16:55 10:13 RBC Hgb Hct POC Hct POC Sodium Sodium 128 L 120 L 117 L* POC Chloride Chloride 95 L 89 L 86 L Anion Gap 6.0 L 7.0 L POC BUN BUN 5 L 4 L 4 L Creatinine 0.5 L 0.5 L POC Creatinine Glucose 120 H 107 H POC WB Ioniz Calcium Urine Osmolality 10/19/20 10/19/20 04:11 00:10 RBC Hgb Hct POC Hct 32 L 29 L POC Sodium 121 L 120 L Sodium 117 L* POC Chloride 86 L 86 L Chloride 86 L Anion Gap 7.0 L POC BUN < 3 L 3 L BUN 3 L Creatinine 0.5 L POC Creatinine 0.4 L 0.4 L Glucose POC WB Ioniz Calcium 1.15 L 1.08 L Urine Osmolality Meds: Medications Acetaminophen (Acetaminophen 160 Mg/5 Ml Oral.Meghan) 650 mg PO Q6HP PRN; Protocol PRN Reason: Per Pain Protocol Docusate Sodium (Docusate Sodium 100 Mg Capsule) 100 mg PO BID [facility] Enoxaparin Sodium (Enoxaparin 40 Mg/0.4 Ml Syringe) 40 mg SQ DAILY [facility] Hydrocortisone Sodium Succinate (Hydrocortisone Sod Succ 100 Mg Vial) 50 mg IV Q8H [facility] Sodium Chloride (Sodium Chloride 0.9%) 1,000 mls @ 75 mls/hr IV .[id number] [facility] Last Admin: 10/21/20 14:27 Dose: 75 mls/hr Documented by: Lactulose (Lactulose 20 Gm/30 Ml Oral.Meghan) 10 gm PO DAILYP PRN PRN Reason: Constipation Ondansetron HCl (Ondansetron 4 Mg/2 Ml Vial) 4 mg IV Q4HP PRN; Protocol PRN Reason: Nausea And Vomiting Senna (Sennosides 1 Tablet) 2 tab PO HSP PRN PRN Reason: Constipation Sodium Chloride (0.9 % Sodium Chloride 10 Ml Syringe) 10 ml IV Q8 [facility] Last Admin: 10/21/20 12:54 Dose: 10 ml Documented by: A/P Narrative A/P Narrative: Assessment: 65-year-old female with no significant past medical history except possibly depression, osteoarthritis currently living in a intermediate facility long-term admitted for severe hyponatremia. The patient is euvolemic on exam, the patient has had hyponatremia on more recent lab work. Hyponatremia workup was suggestive of adrenal insufficiency. #Resolving hyponatremia secondary to adrenal insufficiency #Adrenal insufficiency -low normal AM cortisol (8:00 AM) -high dose cosyntropin stimulation 250 mcg w/ cortisol levels of 9.4 at 30 min and 11.6 at 60 min #Large pituitary macroadenoma -hx of pituitary mass partially resected years ago per patient #Chronic normocytic anemia #Osteoarthritis #Possible depression vs adrenal insufficiency? #Generalized weakness possibly due to adrenal insufficiency Plan -Start Cortef 20 mg AM and 10 mg PM. -Pending ACTH. -Pending prolactin w/ serial dilutions. -Resume home Fluoxetine. -Tylenol prn for knee pain -PT/OT -CODE STATUS: Full -Disposition: SNF vs assisted living, referral for endocrinology and neurosurgery. Time Spent With Patient Time: Total time spent is greater than 50% in coordination of care (as documented) at patient's floor/unit and/or counseling patient: QUALITY VTE Deep Vein Thrombosis/Pulmonary Embolism Present on Admission: No
[2020-10-22] MEDS: 0.9 % SODIUM CHLORIDE 10 ML SYRINGE IV SCH ×3 (04:29→21:30)
[2020-10-22 08:27] LABS: Blood Urea Nitrogen 10 mg/dL (8-23); Calcium 8.6 mg/dL (8.6-10.4); Carbon Dioxide 28 mmol/L (22-30); Chloride 101 mmol/L (96-108); Glomerular Filtration Rate 94; Glucose 80 mg/dL (70-105)
[2020-10-22] MEDS ORDERED: FLUoxetine HCL 10 MG CAPSULE PO SCH (09:00)
[2020-10-22] MEDS: DOCUSATE SODIUM 100 MG CAPSULE PO SCH ×2 (09:22→21:30)
[2020-10-22] MEDS: HYDROCORTISONE 10 MG TABLET PO SCH (09:22)
[2020-10-22] MEDS: ENOXAPARIN 40 MG/0.4 ML SYRINGE SQ SCH (09:24)
[2020-10-22] MEDS ORDERED: POTASSIUM CHLORIDE 20 MEQ TABLET PO ONE (09:28)
[2020-10-22 10:57] LABS: Ferritin 371.6 ng/mL (30.0-400.0)
--- NOTE | 2020-10-22 15:44 | Internal Med Progress Note ---
SUBJECTIVE Subjective Patient information: Note initiated : 10/22/20 at 3:36 pm Service Date, if different from initiated Date: [] Patient: Yesica Fuller a 65 y/o F admitted on 10/17/20 for Hyponatremia. Chief Complaint: [] Interval history: Ms. Fuller is a 65 year old female who presented to the ED for hyponatremia discovered with the patient had routine labs drawn at the [facility] facility where she is staying [facility]term. Patient has a history of cholecystectomy, osteoarthritis, prior hyponatremia noted on more recent lab work. She is on low-dose duloxetine, presumably for depression and takes Tylenol osteoarthritis of her knees. The patient says that she drinks a lot of water. In the ED, the patient was asymptomatic however sodium level was 115. Review of recent records indicate that she was seen last month in the ED and als o had hyponatremia, improved to 131 after receiving IV fluid. On exam, the patient appears to be euvolemic. Review of systems was essentially negative except for chronic knee pain. 10/18 Sodium still severely low after IV NS, asymptomatic. Gave 3% saline IV, following sodium level, fluid restriction. TSH normal, AM cortisol pending, urine Na and osmolality pending. 10/19 Low normal AM cortisol, high dose cosyntropin test suggestive of adrenal insufficiency. Started stress dose Hydrocortisone IV. IV fluid with normal saline, trending sodium. ACTH level pending. 10/20 Started D5 IV overnight to slow sodium correction, discontinued this morning. The patient feels better today. Overall clinical picture suggestive of adrenal insufficiency causing her decline in health in the recent weeks. Continue Hydrocortisone IV today, will transition to oral therapy prior to discharge. Free T4 in the normal range. Still waiting on ACTH level but suspect secondary or less likely tertiary adrenal insufficiency. After further discussion and review the patient says she had pituitary surgery awhile ago but does not recall those details. 10/21 MRI pituitary protocol showed a large pituitary mass. Prolactin ordered with serial dilutions. Discussed case with neurosurgery and endocrinology at [facility], no urgent need for surgery at this time but optimally should be evaluated soon, if prolactinoma then Bromocriptine should be started to shrink tumor size, ok to transition to oral cortef now per endocrinology, no available beds at [facility]. Sodium 131 today. The patient feels much better overall. 10/22 Sodium level normal today, transitioned to oral hydrocortisone twice a day. The patient has been accepted to [facility] in [place] for expedited neurosurgery evaluation, likely transfer tomorrow. Updated the patient about transfer to [facility]. Physical exam Head: Atraumatic, normal inspection. Eyes: normal appearance, no scleral icterus. Neck: full ROM Respiratory: no respiratory distress. Cardiovascular: normal rate and rhythm, S1, S2. GI/Abdominal: soft, nontender, no guarding. Extremities: full range of motion, nontender. Neurological: II-XII intact, intact motor, intact sensation. Psychiatric: normal mood. Skin: warm, normal color Constitutional Vitals: Vital Signs Temp Pulse Resp BP Pulse Ox 98.1 F 77 14 95/58 96 10/22/20 12:00 10/22/20 12:00 10/22/20 12:00 10/22/20 12:00 10/22/20 12:00 Period Temp Pulse Resp BP Sys/Hayes Pulse Ox Last 24 Hr 96.9 F-98.2 F 54-77 12-20 90-113/52-78 94-98 Intake and Output 10/22/20 10/22/20 10/22/20 05:59 13:59 21:59 Intake Total 1440 Output Total 2 Balance 1438 Intake & Output: Intake & Output 10/22/20 10/22/20 10/22/20 05:59 13:59 21:59 Intake Total 1440 Output Total 2 Balance 1438 Intake: IV 1000 Sodium Chloride 0.9% 1,000 ml @ 1000 75 mls/hr IV .[id number] MELE Rx#: [id number] Oral 440 Output: # of times incontinent of urine 2 OBJ DATA Labs CBC & Chem 7: 10/21/20 12:05 10/22/20 05:33 Labs: Abnormal Lab Results 10/22/20 10/22/20 10/21/20 05:33 05:33 12:05 RBC Hgb 9.5 L Hct Sodium Potassium 2.9 L* Chloride Anion Gap 7.0 L BUN Creatinine Glucose Iron 149 H TIBC 185 L Unsat Iron Binding 36 L Transferrin % Sat 81 H Urine Osmolality 10/21/20 10/21/20 10/20/20 05:10 05:10 16:10 RBC 3.00 L Hgb 8.8 L Hct 26.9 L Sodium 131 L 129 L Potassium Chloride Anion Gap BUN 7 L 6 L Creatinine Glucose 121 H 119 H Iron TIBC Unsat Iron Binding Transferrin % Sat Urine Osmolality 10/20/20 10/20/20 10/20/20 15:51 10:04 08:02 RBC Hgb Hct Sodium 126 L 126 L Potassium Chloride 91 L 92 L Anion Gap BUN 5 L 5 L Creatinine Glucose 139 H 143 H Iron TIBC Unsat Iron Binding Transferrin % Sat Urine Osmolality 79 L 10/20/20 10/20/20 10/19/20 06:07 02:09 22:05 RBC Hgb Hct Sodium 126 L 127 L 128 L Potassium Chloride 93 L 94 L 95 L Anion Gap 7.0 L 6.0 L BUN 5 L 5 L 5 L Creatinine Glucose 151 H 140 H 120 H Iron TIBC Unsat Iron Binding Transferrin % Sat Urine Osmolality 10/19/20 16:55 RBC Hgb Hct Sodium 120 L Potassium Chloride 89 L Anion Gap BUN 4 L Creatinine 0.5 L Glucose 107 H Iron TIBC Unsat Iron Binding Transferrin % Sat Urine Osmolality Meds: Medications Acetaminophen (Acetaminophen 160 Mg/5 Ml Oral.Meghan) 650 mg PO Q6HP PRN; Protocol PRN Reason: Per Pain Protocol Docusate Sodium (Docusate Sodium 100 Mg Capsule) 100 mg PO BID [facility] Last Admin: 10/22/20 09:22 Dose: Not Given Documented by: Enoxaparin Sodium (Enoxaparin 40 Mg/0.4 Ml Syringe) 40 mg SQ DAILY [facility] Last Admin: 10/22/20 09:24 Dose: 40 mg Documented by: Fluoxetine HCl (Fluoxetine Hcl 10 Mg Capsule) 10 mg PO QDAY [facility] Last Admin: 10/22/20 09:21 Dose: 10 mg Documented by: Hydrocortisone (Hydrocortisone 10 Mg Tablet) 20 mg PO [facility] Last Admin: 10/22/20 09:22 Dose: 20 mg Documented by: Hydrocortisone (Hydrocortisone 10 Mg Tablet) 10 mg PO DAILY@1700 [facility] Lactulose (Lactulose 20 Gm/30 Ml Oral.Meghan) 10 gm PO DAILYP PRN PRN Reason: Constipation Ondansetron HCl (Ondansetron 4 Mg/2 Ml Vial) 4 mg IV Q4HP PRN; Protocol PRN Reason: Nausea And Vomiting Senna (Sennosides 1 Tablet) 2 tab PO HSP PRN PRN Reason: Constipation Sodium Chloride (0.9 % Sodium Chloride 10 Ml Syringe) 10 ml IV Q8 [facility] Last Admin: 10/22/20 04:29 Dose: 10 ml Documented by: A/P Narrative A/P Narrative: Assessment: 65-year-old female with no significant past medical history except p ossibly depression, osteoarthritis currently living in a halfway facility long-term admitted for severe hyponatremia. The patient is euvolemic on exam, the patient has had hyponatremia on more recent lab work. Hyponatremia workup was suggestive of adrenal insufficiency, resolved with stress dosed steroids and IV fluid. MRI brain showed a large pituitary mass causing hydrocephalus. The patient has had progressive vision loss likely caused by the pituitary mass. #Large pituitary macroadenoma -complicated by vision deficits, hydrocephalus -hx of pituitary mass partially resected years ago per patient #Adrenal insufficiency -low normal AM cortisol (8:00 AM) -high dose cosyntropin stimulation 250 mcg w/ cortisol levels of 9.4 at 30 min and 11.6 at 60 min -Lab reported that the ACTH sample was inadequate, can be repeated at [facility] with quicker results. #Resolved hyponatremia secondary to adrenal insufficiency #Proximal right tibial trabecular bone loss on xray per xray report -could be related to adrenal insufficiency #Chronic normocytic anemia #Osteoarthritis #Possible depression vs adrenal insufficiency? #Generalized weakness possibly due to adrenal insufficiency Plan -Cortef 20 mg AM and 10 mg PM. -Pending prolactin w/ serial dilutions (send-out lab). -Home Fluoxetine. -Tylenol prn for knee pain -MRI of right knee. -PT/OT -CODE STATUS: Full -Disposition: [facility] Time Spent With Patient Time: Total time spent is greater than 50% in coordination of care (as documented) at patient's floor/unit and/or counseling patient: QUALITY VTE Deep Vein Thrombosis/Pulmonary Embolism Present on Admission: No
[2020-10-22] MEDS ORDERED: HYDROCORTISONE 10 MG TABLET PO SCH (17:00)
--- NOTE | 2020-10-23 05:07 | Magnetic Resonance Report ---
CLINICAL INFORMATION: 5 cm radiolucent lesion in the lateral tibial epiphysis on recent plain film COMPARISON: Plain films 09/08/2020 TECHNIQUE: Shoulder coil was required the patient cannot straighten her leg. Exam quality is suboptimal but adequate. Sagittal T1, sagittal and coronal proton density, sagittal and coronal T2 and axial proton density images were acquired. FINDINGS: No marrow signal abnormalities in the lateral tibial epiphysis and metaphysis which was suspected on plain film. 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 No marrow signal abnormality. There is a small amount of fluid in the patellofemoral and tibiofemoral joint. The menisci show mild mucoid degeneration, but no evidence of yohana tear. Anterior posterior cruciate, medial lateral collateral ligament and extensor mechanism are all normal. Muscle and fascial planes unremarkable. IMPRESSION: No evidence of pathology in the lateral tibial epiphysis and metaphysis which was suspected on plain film. Plain film findings likely reflect trabecular refraction due to osteoporosis. Small effusions in the patellofemoral and tibiofemoral joint likely related to minor trauma. Interpreted and Authenticated by: Eligio Murdock 10/23/20
[2020-10-23] MEDS: 0.9 % SODIUM CHLORIDE 10 ML SYRINGE IV SCH (05:42)
--- NOTE | 2020-10-23 07:07 | Discharge Summary ---
Discharge Provider Provider Patient information: Note initiated : 10/23/20 at 6:50 am Service Date, if different from initiated Date: [] Patient: Yesica Fuller 65 y/o F admitted on 10/17/20 for Hyponatremia. Chief Complaint: [] Date of admission: 10/17/20 20:23 Discharge date: 10/23/20 Primary care physician: DOMINIC Blanco Consults: 10/17/20 Consult to Physician [CONS] Stat Comment: Consulting Provider: Wesly Suarez Reason For Exam: Physician to Consult Discharge Meds Discharge Medications Home Medications acetaminophen 1,000 mg PO TID PRN 10/17/20 [History Confirmed 10/21/20 Last Taken Unknown] hydrocortisone 10 mg PO DAILY@1700 #60 tab 10/23/20 [Rx Last Taken Unknown] hydrocortisone 20 mg PO QAC #60 tab 10/23/20 [Rx Last Taken Unknown] COURSE Hospital Course Hospital course: Ms. Fuller is a 65 year old female who was send from a local SNF to the [facility] Emergency Department for severe hyponatremia discovered [facility]. Per report they were routine labs. The patient had a progressive decline in her health over the last year that was not explained. She has a history of cholecystectomy, osteoarthritis, prior hyponatremia noted on more recent lab work. I later learned that she had previously had a pituitary mass that was partially resected years ago. Her medication were low-dose duloxetine and Tylenol as needed for knee pain. The patient was extremely tired upon admission and unable to provide detailed history. Review of recent records indicate that she was seen last month in the ED and also had hyponatremia, improved to 131 after receiving IV fluid. The sodium level was 115, she was admitted to the ICU. On exam, the patient appears to be euvolemic however she did have episodes of hypotension. The patient was started on IV fluid and admitted to the hospital. 10/18 Sodium still severely low after IV NS, asymptomatic. Gave 3% saline IV, following sodium level closely. TSH normal, AM cortisol pending, urine Na and osmolality pending. Sodium has not improved much upon recheck. 10/19 Low normal AM cortisol. Ordered high dose cosyntropin test, results consistent with adrenal insufficiency with corisol of 11.6 60 minutes after Cosyntropin 250 mcg IV. Started stress dose Hydrocortisone IV. IV fluid with normal saline, trending sodium. ACTH level pending. 10/20 Sodium now improving rapitdly, Started D5 IV overnight to slow sodium correction. The patient feels better today. Overall clinical picture suggestive of adrenal insufficiency as the cause of the patient's recent decline in health. Continue Hydrocortisone IV today, will transition to oral therapy prior to discharge. Free T4 in the normal range. Still waiting on ACTH level but suspect secondary or less likely tertiary adrenal insufficiency. After further discussion and review the patient says she had pituitary surgery awhile ago but does not recall those details. She has recent vision changes, likely due to the pituitary mass 10/21 MRI pituitary protocol showed a large pituitary mass and hydrocephalus. Prolactin ordered with serial dilutions. Discussed case with neurosurgery and endocrinology at [facility], no beds available for transfer and recommended considering [facility] in [place] due to size of mass. Discussed with Endocrinology at [facility]-waiting for serial dilution of serum prolactin. If serial dilution test is positive then Bromocriptine should be started to shrink tumor size, ok to transition to oral cortef now per endocrinology. Sodium 131 today. The patient feels much better overall. 10/22 Sodium level normal today, transitioned to oral hydrocortisone twice a day. The patient has been accepted to [facility] in [place] for expedited neurosurgery evaluation, likely transfer tomorrow. Updated the patient about transfer to [facility]. 10/[address] [facility]. Post hospital management; -Neurosurgery evaluation at [facility] for large pituitary mass resection. -Continue Cortef at all times for new diagnosis of adrenal insufficiency. -Give stress dose IV Hydrocortisone prior to events that will increase physiologic stress. -Consider Endocrinology consultation at [facility] to optimize management of adrenal insufficiency and further workup and management of other hormone distorions likely due to pituitary mass. Physical exam Head: Atraumatic, normal inspection. Eyes: normal appearance, no scleral icterus. Neck: full ROM Respiratory: no respiratory distress. Cardiovascular: normal rate and rhythm, S1, S2. GI/Abdominal: soft, nontender, no guarding. Extremities: full range of motion, nontender. Neurological: II-XII intact, intact motor, intact sensation. Psychiatric: normal mood. Skin: warm, normal color Discharge diagnosis: Probable secondary adrenal insufficiency due to pituitary mass Secondary discharge diagnosis: Pituitary mass Severe hyponatremia Encephalopathy Reason for admission: Severe hyponatremia Time Spent with Patient Time attestation: Total time spent providing and/or coordinating discharge services: EXAM Constitutional Vitals: Temp Pulse Resp BP Pulse Ox 98.1 F 66 16 119/59 97 10/23/20 03:35 10/23/20 03:35 10/23/20 03:35 10/23/20 03:35 10/23/20 03:35 Discharge Data Data Completed and Pending Labs on day of discharge: Labs from last 24 hours 10/23/20 10/22/20 10/22/20 05:30 08:35 05:33 Sodium Pending Potassium Pending Chloride Pending Carbon Dioxide Pending Anion Gap Pending BUN Pending Creatinine Pending GFR Calculation Pending Glucose Pending Calcium Pending Iron 149 H TIBC 185 L Unsat Iron Binding 36 L Transferrin % Sat 81 H Ferritin 371.6 Vitamin B12 390.5 Folate 4.3 ACTH 10/22/20 10/18/20 05:33 08:40 Sodium 136 Potassium 2.9 L* Chloride 101 Carbon Dioxide 28 Anion Gap 7.0 L BUN 10 Creatinine 0.6 GFR Calculation 94 Glucose 80 Calcium 8.6 Iron TIBC Unsat Iron Binding Transferrin % Sat Ferritin Vitamin B12 Folate ACTH TNP Discharge Plan Patient/Caregiver Discharge Instructions Activity: increase activity as tolerated Diet: Regular Diet Prescriptions: New hydrocortisone 10 mg Tablet 10 mg PO DAILY@1700 Qty: 60 RF: 8 hydrocortisone 10 mg Tablet 20 mg PO QAMCC Qty: 60 RF: 8 Continued acetaminophen 500 mg Tablet 1,000 mg PO TID PRN (Reason: Pain) RF: 0 Discontinued fluoxetine 10 mg Capsule 10 mg PO QDAY RF: 0 Follow Up Plan Follow up with: Chai Vázquez ARNP [Primary Care Provider] - Patient Disposition: [facility] Prognosis: Fair Overall status at discharge: patient is progressing back to baseline Discharge Orders: Discharge Order (Routine); Ordered 10/23/20 Ordered By: Wesly SIMON VTE Deep Vein Thrombosis/Pulmonary Embolism Present on Admission: No
[2020-10-23 07:43] LABS: Blood Urea Nitrogen 11 mg/dL (8-23); Calcium 8.7 mg/dL (8.6-10.4); Carbon Dioxide 30 mmol/L (22-30); Chloride 100 mmol/L (96-108); Glomerular Filtration Rate 94; Glucose 81 mg/dL (70-105)
[2020-10-23] MEDS: HYDROCORTISONE 10 MG TABLET PO SCH (08:40)
[2020-10-23] MEDS: DOCUSATE SODIUM 100 MG CAPSULE PO SCH (08:41)
[2020-10-23] MEDS: ENOXAPARIN 40 MG/0.4 ML SYRINGE SQ SCH (08:42)
== END 2020-10-23 10:50 | disposition short-term general hospital (02) | DRG 644 ==
LOC: ED 16:53 → ICU 20:23 → MEDSUR 10-21 12:19
PROVIDERS: ADMIT Internal Medicine; ATTEND Internal Medicine